=== PATIENT | male | born 2000 | race Caucasian/White ===

== ENCOUNTER 2024-07-14 06:04 | Day surgery (SDC) | payer SELFPAY, OTHER ==
[2024-07-14] VITALS (8 sets, daily range): BP systolic 105–118; BP diastolic 64–89; PULSE 55–71; RESP 14–18; TEMP 36.3–36.9; O2SAT 99–100; BMI 21.8
--- NOTE | 2024-07-14 06:41 | PCM.PRE.AN2 ---
ASA Classification* ASA Classification ASA Classification: 2 Assessment & Plan Anesthesia* Anesthesia Assessment Anesthesia Assessment: Discussed sedation and/or anesthesia options, risks, benefits, and alternatives with patient/parents/legal guardian/POA. Questions invited. The patient/parents/legal guardian/POA seems to understand and agrees to proceed with anesthesia plan. Reviewed the physical assessment, medical history, allergy history and patient home medications list prior to surgery/procedure/anesthetic and documented any changes. Performed airway and anesthesia risk assessments. Anesthesia Type Anesthesia Type: General Anesthesia Focused Assessment* Airway Assessment Mouth opens: >3 cm Mallampati Score: II Focused Labs Anesthesia Preop lab: CBC CHEMISTRY COAG Pre-Assessment Diagnosis/Proposed Procedure Planned Operative Procedure(s): LAP ROBOTIC INGUINAL HERNIA WITH MESH LEFT Anesthesia History Anesthesia History - wrapping checker: Anesthesia History - wrapping checker Hx Hospitalization No 07/05/24 10:40 Any Problems With Anesthesia No 07/05/24 10:40 Cholinesterase deficiency No 07/05/24 10:40 You/Your Family Experience No 07/05/24 10:40 fever (hyperthermia) with Relationship Recent Exposure to Contagious Disease Does patient have nerve No 07/05/24 10:40 stimulator Patient instructed to have device shut off --Does patient have Pacemaker or ICD? When Was Last Pacemaker Check QUESTION #4 FULL TEXT: You/Your Family Experience fever (hyperthermia) with Anesthesia Last Oral Intake Last Oral intake: Last Oral Intake NPO since Meds taken in AM with sips of water? Meds patient instructed to take am of surgery PONV PONV - wrapping checker: PONV - wrapping checker Female No 07/05/24 10:40 HX of Motion Sickness No 07/05/24 10:40 HX of N/V After Surgery No 07/05/24 10:40 Non-Smoker No 07/05/24 10:40 Duration of Surgery greater No 07/05/24 10:40 than 60 minutes Number of Risk Factors PONV Score Height & Weight Height & Weight: Anesthesia: Height & Weight Height 5 ft 11 in 01/15/24 14:12 Respiratory Assessment Respiratory Assessment - wrapping checker: Respiratory Tract Infection Hx - wrapping checker Hx Respiratory Tract Infection No 07/05/24 10:40 STOP Sleep Apnea STOP Sleep Apnea - wrapping checker: STOP Sleep Apnea - wrapping checker Hx Hypertension No 07/05/24 10:40 Hx Sleep Apnea No 07/05/24 10:40 CPAP BIPAP Do you snore loudly (louder No 07/05/24 10:40 than talking or can be heard Do you often feel tired/ No 07/05/24 10:40 fatigued/ sleepy during daytime? Has anyone observed you stop No 07/05/24 10:40 breathing during sleep? STOP Results Negative 07/05/24 10:40 QUESTION #5 FULL TEXT : Do you snore loudly (louder than talking or can be heard through closed doors)? 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 Specify any problems Hx of Preganancy in last 3 N/A 07/05/24 10:40 Months Nurse Filling Out Transfusion DSCHRIBER 07/05/24 10:40 & Questions: Date: 07/05/24 07/05/24 10:40 Time: 10:41 07/05/24 10:40 Patient unable to answer at this time (ie. confused, unrespo /Reproduction History /Reproductive History - wrapping checker: /Reproductive Hx- wrapping checker Hx Now No 07/05/24 10:40 Gestational Age (in weeks): EDC: Hx Hx Para Hx Section SAB No 07/05/24 10:40 Active Medications Active Medications: Current Medications Generic Name Dose Route Start Last Admin Trade Name Freq PRN Reason Stop Dose Admin Cefazolin Sodium 2 gm/ N/A 20 mls @ 400 mls/hr 07/14/24 07:30 IV 07/14/24 07:32 PREOP ONE Sodium Chloride 1,000 mls @ 15 mls/hr 07/14/24 06:20 IV 07/19/24 19:39 .Q48H [facility] Protocol PFSH Medical History Chewing tobacco dependence Home Medications ?Medication ?Instructions ?Recorded ?Last Taken ?Type NK 01/15/24 Unknown History Allergy/AdvReac Type Severity Reaction Status Date / Time No Known Allergies Allergy Verified 07/05/24 10:37 Surgical History Hx of myringotomy Social History Smoking Status: Current some day smoker tobacco type: smokeless tobacco alcohol intake: current alcohol intake frequency: holidays/special occasions only Alcohol type: beer substance use type: does not use Review of Systems (Anesthesia) ROS Narrative System reviewed and no additional complaints, except as documented.
[2024-07-14] MEDS: 0.9% Normal Saline (1000mL) 1,000 ML 15 ML IV (06:48)
--- NOTE | 2024-07-14 07:03 | PCM.HP.BLA ---
History and Physical Date of Admission: 07/14/24 Intake Vital Signs 01/14/2414:12 Height 5 ft 11 in Weight: 156 lb BMI 21.7 BP 106/66 Blood Pressure Location Rt brachial Position Sitting Respiration 18 Pulse 65 Pulse Source Monitor Temp 97.4 F L Temp Source Temporal Pulse Oximetry (%) 98 Oxygen Delivery Method room air Intake Visit Reasons: INGUINAL HERNIA Chief Complaint: Left inguinal hernia Accompanied by: Father Is patient in pain?: No Allergies No Known Allergies Allergy (Unverified 01/15/24 14:12) Medications ?Medication ?Instructions ?Recorded ?Confirmed ?Type NK 01/15/24 01/15/24 History PFSH Social History (Updated 01/15/24 @ 14:12 by Marie Lopez LPN) Smoking Status: Never smoker alcohol intake: current alcohol intake frequency: holidays/special occasions only Alcohol type: beer substance use type: does not use HPI HPI HPI: Patient is a 23-year-old male here with left groin bulging that started about 3 weeks ago. He says that he had pain for the first 2 weeks and is not hurting currently. He denies fevers or chills. He is not having any pain on the opposite side. ROS General General: No weight change, appetite, fatigue, colon cancer, breast cancer or weakness HEENT HEENT: No difficulty swallowing, eye injury, eye surgery, swollen glands or hoarseness Endo Endocrine: No thyroid disease, diabetes mellitus, thyroid cancer, Hair loss, heat intolerance or cold intolerance Skin Skin: No rash or changing moles Musc Musculoskeletal: No back problems, arthritis, rheumatoid arthritis, gout or joint pain Cardio Cardiovascular: No murmur, pacemaker, heart disease, atrial fibrillation, high blood pressure, heart attack, heart stent, palpitations, shortness of breat with exertion or chest pain Psych Psychiatric: No depression, anxiety or hearing voices Resp Respiratory: No shortness of breath, No sleep apnea, No cough, No COPD, No asthma, No emphysema and No wheezing Gastro Gastrointestinal: No abdominal pain, No nausea or vomiting, No diarrhea, No constipation, No blood in stool, No acid reflux, No hemorrhoids, No ulcers, No gallbladder problem and No black,tarry stools Ari Hematologic: No blood thinners, No blood disorders, No bleeding, No anemia and No blood clots Neuro Neurologic: No numbness, No tingling and No weakness Exam Const General: cooperative Orientation: alert and oriented x3 HENMT Head: normal to inspection Neck Neck: normal visual inspection and full ROM Chest Chest palpation & inspection: normal inspection of the chest Resp Effort & Inspection: normal respiratory effort Auscultation: clear to auscultation bilaterally Cardio Rate: regular rate Rhythm: regular rhythm GI Inspection: non-distended Palpation: soft, hernia indirect inguinal on the left and nontender Skin General: no rashes or lesions noted Neuro General: patient alert and patient oriented x3 Extrem General: full ROM Psych Appearance: grossly normal Mental Status: mental status grossly normal Assessment and Plan Assessment and Plan (1) Left inguinal hernia: Status: Acute Plan: The patient has a left inguinal hernia which is reducible. It appears small. I discussed robotic assisted laparoscopic left inguinal hernia repair with mesh with the patient. I discussed the risks including but not limited to bleeding, infection, injury underlying organs such as the bowel or bladder or blood supply to the testicle. Patient understands the risks and is willing to proceed. Patient would like surgery in July so he will come back in the fall to update his H&P. Adalid Hardy MD Pager: [facility] [address] [place] [address], [address] [place] [address] Office: I have examined the patient and the H&P has been reviewed. There are no clinical changes since date of exam.
[2024-07-14] MEDS: Cefazolin 2 GM in Syringe IV (07:33)
[2024-07-14] MEDS: Bupivacaine Mpf 0.5% 30 ML VIAL (07:56)
--- NOTE | 2024-07-14 08:34 | PCM.POST.ANE ---
Anesthesia: Postop Eval I Current Vital Signs Temperature: 97.5 F Pulse Rate: 70 Blood Pressure: 118/89 Respiratory Rate: 18 Pulse Ox: 100 Oxygen Delivery Method: Room Air Assessment Airway patent: Yes Spontaneous unlabored respirations: Yes Mental status: Awake and Calm nausea: No Vomiting: No Anesthesia Complication: No Fluid Hydration Crystalloid volume administer (ml): 750 Total IV fluid infused: 750 Progress Note Anesthesia document: Postop Eval 1 completed: Yes
--- NOTE | 2024-07-14 08:36 | OP.PCM_ITS ---
Operative Report (Standard) Operative Information Date of Procedure: 07/14/24 Pre-Operative Diagnosis: Left inguinal hernia Post-Operative Diagnosis: Left inguinal hernia Surgery/Procedure Performed: Robotic assisted laparoscopic left inguinal hernia repair with mesh lens assistant: Yes Seed Cone Picker: Ricardo Acuña Tasks completed by assistant plant manager: Opening and Closing Type of Anesthesia: General/Regional RN Documented Start/Stop Times: Operation Date: 07/14/24 07:30 Case Time Into Pre-Op 07/14/24 06:17 Out of Pre-Op 07/14/24 07:26 Anesthesia Start 07/14/24 07:28 Into Room 07/14/24 07:28 Procedure Start 07/14/24 07:42 Procedure End 07/14/24 08:25 Anesthesia End 07/14/24 08:29 Out of Room 07/14/24 08:29 Into Recovery 07/14/24 08:34 Procedure Start Time: 07:42 Procedure Stop Time: 08:25 Select all DRAINS/GRAFTS/IMPLANTS that apply: Implanted device Implanted device details: ProGrip mesh in the left inguinal region Estimated Blood Loss: 5 Specimen collected: No Description of surgery: Patient was brought to the operating room and general anesthesia was induced. The abdomen was prepped and draped in usual sterile fashion. Midline incision was made superior to the umbilicus and the fascia was grasped and elevated and a Veress needle was placed into the abdomen and drop test was performed. The abdomen is insufflated to 15 mmHg and the Veress needle was removed. A port was placed into the abdomen and the camera was placed into the abdomen to inspect and there were no injuries from entry. Next the patient was placed in a steep Trendelenburg position. The patient had a indirect left inguinal hernia with nothing on the right. Under direct visualization a right lateral 8 mm port was placed as well as a left lateral 8 mm port. The robot was then docked. Using electrocautery scissors the peritoneum was incised in the left lower quadrant and dissection was carried inferiorly until the hernia sac was encountered. The hernia sac was dissected free circumferentially. Once the hernia sac was fully reduced dissection was carried posteriorly. Next a piece of ProGrip mesh was placed over the left inguinal hernia and unfolded. It covered the hernia defect with good overlap. Next the peritoneum was reapproximated using a running 3 OV lock suture completely covering the mesh. Next the instruments were removed and the abdomen was allowed to desufflate. The incisions were closed with interrupted 4-0 Monocryl sutures and Steri-Strips. Bandages were applied. Local anesthetic was injected prior to closure. Scrotum was checked at the end of the case and contained both testicles. Patient was awoken and taken to PACU in stable condition tolerated the procedure well. Surgical Findings: Indirect left inguinal hernia Complications Complications: No Admit VTE Documentation VTE Mechan Device Prophylaxis: SCD's
--- NOTE | 2024-07-14 08:39 | DCINST_ITS ---
Discharge Instructions Procedure Hernia Diet Discharge Diet: Light diet - advance as tolerated Activity Discharge Activity: May Not Drive (for 2-3 days or while taking narcotic pain meds.) and May Shower (with the bandage in place 1-2 days after surgery.) Lifting Restrictions: 20 pounds for 4 weeks. Additional Activity Instructions:: Climbing stairs is fine, walking is encouraged. Sitting in bed may be uncomfortable. Sitting up using your lateral muscles (sitting up sideways) is usually more comfortable. Do not drive, work heavy equipment of sign legal documents for 24 hours. If your hernia repair was an inguinal repair, you may have scrotal swelling, an ice pack and/or athletic support can provide more comfort. Pain medications may cause nausea, you should typically eat light foods as you take your pain medications. Pain medications may also cause constipation. If you have difficulty with this, discuss with your doctor. Alternate ibuprofen and Tylenol for pain control, oxycodone for breakthrough pain. Dressing / Incision Call your doctor if your incision/area has: Continuous Slow Oozing, Sudden Increased Bleeding, Increased Pain/ Swelling, Increased Redness and Foul Smelling Discharge Call your doctor if you observe: Fever of 101 or Higher Suture Line Care: Avoid Pulling/Pushing and Avoid Pinching/Bending Remove Dressing in: 2 days (Remove clear bandages in 2 days, remove Steri-Strips in 7 to 10 days.) Cleanse incision/area with: Soap & Water Follow Up Care Please Follow Up With: Adalid Hardy MD When: Please call to schedule 2 week follow up appointment. [phone] Test Results: Test results from this visit will be discussed in further detail at your follow- up appointment, if applicable. Discharge Plan Admission Attending Provider: Adalid Hardy Primary Care Provider: Gato Ramon Instructions Print Language: Luxembourgish Discharge Orders/Prescriptions Prescriptions: New oxycodone 5 mg Tablet 5 - 10 mg PO Q4H PRN PRN (Reason: Pain Score 4-10) 5 Days Qty: 10 0RF Referrals / Follow Up: Gato Ramon MD [Primary Care Provider] - Disposition Disposition (needs filled in before D/C Order can be placed): Home, Self Care
--- NOTE | 2024-07-14 08:50 | POSTOPAN2_ITS ---
Anesthesia Postop Eval I Sum Postop Eval Completion status Anesthesia document: Postop Eval 1 completed: Yes Anesthesia Postop Eval I Summary Anesthesia Postop Eval I Summary: Anesthesia Postop Eval I: Assessment Summary Airway patent Yes 07/14/24 08:35 OUTSOLE TACKER.SKOBY Spontaneous unlabored Yes 07/14/24 08:35 OUTSOLE TACKER.SUDHIR respirations Mental status Awake,Calm 07/14/24 08:35 OUTSOLE TACKER.THOROBWade nausea No 07/14/24 08:35 OUTSOLE TACKER.THOROBWade Vomiting No 07/14/24 08:35 OUTSOLE TACKER.THOROBWade Anesthesia Postop Eval I: Fluid Summary Crystalloid volume administer 750 07/14/24 08:35 OUTSOLE TACKER.SKOBY (ml) Colloids volume administered ( ml) Blood Product volume administered (ml) Total IV fluid infused 750 07/14/24 08:35 OUTSOLE TACKER.SUDHIR Anesthesia Postop Eval I: Summary Notes Anesthesia Complication No 07/14/24 08:35 OUTSOLE TACKER.SUDHIR Anesthesia Complication Comment: Post-operative progress note Anesthesia: Postop Eval II Evaluation Mental status: Awake Pain Level: 2 nausea: No Vomiting: No
--- NOTE | 2024-07-14 08:50 | PCM.POSTANE2 ---
Anesthesia Postop Eval I Sum Postop Eval Completion status Anesthesia document: Postop Eval 1 completed: Yes Anesthesia Postop Eval I Summary Anesthesia Postop Eval I Summary: Anesthesia Postop Eval I: Assessment Summary Airway patent Yes 07/14/24 08:35 COMPREHENSIVE ADVISOR.SKOBY Spontaneous unlabored Yes 07/14/24 08:35 COMPREHENSIVE ADVISOR.SUDHIR respirations Mental status Awake,Calm 07/14/24 08:35 COMPREHENSIVE ADVISOR.THOROBWade nausea No 07/14/24 08:35 COMPREHENSIVE ADVISOR.THOROBWade Vomiting No 07/14/24 08:35 COMPREHENSIVE ADVISOR.THOROBWade Anesthesia Postop Eval I: Fluid Summary Crystalloid volume administer 750 07/14/24 08:35 COMPREHENSIVE ADVISOR.SKOBY (ml) Colloids volume administered ( ml) Blood Product volume administered (ml) Total IV fluid infused 750 07/14/24 08:35 COMPREHENSIVE ADVISOR.SUDHIR Anesthesia Postop Eval I: Summary Notes Anesthesia Complication No 07/14/24 08:35 COMPREHENSIVE ADVISOR.SUDHIR Anesthesia Complication Comment: Post-operative progress note Anesthesia: Postop Eval II Evaluation Mental status: Awake Pain Level: 2 nausea: No Vomiting: No
[2024-07-14] MEDS: oxyCODONE 5 MG Tablet PO (09:45)
== END 2024-07-14 11:10 | disposition home or self-care (01) ==
LOC: SDC 06:08 → AC 06:10
PROVIDERS: PCP Family Medicine; Referring Provider Surgery; Visit Provider Surgery
PROC: 0YQ64ZZ Repair Left Inguinal Region, Percutaneous Endoscopic Approach (ICD-10-PCS; CPT 49650; principal; 2024-07-14 07:10)
DX: K40.90 Unilateral inguinal hernia, without obstruction or gangrene, not specified as recurrent (principal)
CPT/HCPCS: 49650; S2900; J2405